=== PATIENT | male | born 1990 | race African-American/Black ===

== ENCOUNTER 2024-06-30 13:30 | Emergency (ER) | payer OTHER, SELFPAY ==
[2024-06-30 13:42] VITALS: BP 102/76; PULSE 81; RESP 14; O2SAT 99; BMI 19.2
--- NOTE | 2024-06-30 13:46 | ED_ITS ---
HPI - General Adult General Chief complaint: Wound/Laceration Stated complaint: laceration l index finger work inj Time Seen by Provider: 06/30/24 13:47 Source: patient Mode of arrival: ambulatory Limitations: no limitations History of Present Illness ED Provider: Kandace Montanez NP HPI narrative: patient is a 34-year-old male who presents to the emergency department for evaluation of an accidental laceration to the distal tip of his left index finger. This occurred just prior to arrival, was accidental while cutting vegetables. Reports date of last tetanus vaccination is unknown. denies use of anticoagulants or known coagulation disorders. Related Data Previous Rx's ?Medication ?Instructions ?Recorded bacitracin 500 unit/gram topical 1 appl topical TID #14.2 grams 06/30/24 ointment Allergies Allergy/AdvReac Type Severity Reaction Status Date / Time No Known Allergies Allergy Verified 06/30/24 13:45 Review of Systems Review of Systems: Yes all other systems are reviewed and are negative PMFSH Past Medical History Attestation statement: The following information was validated with the patient. Source: old records reviewed Social History Social History Advance Directives: No Advance Directives Information Provided: Yes Do you have a plan to hurt others: No Plan Physical Exam ED Vital Signs: Vital Signs - 24 hr 06/30/24 13:42 06/30/24 14:01 06/30/24 14:20 Temperature 97.9 F 97.9 F Pulse Rate 81 81 Respiratory Rate 14 16 Blood Pressure 102/76 102/76 Pulse Oximetry 99 98 Oxygen Delivery Method Room Air Room Air BMI result Body Mass Index 19.2 Appearance: Alert.?Oriented to person, place and time. No acute distress.?Normal affect. CVS: Heart sounds normal. Normal heart rate and rhythm.? Pulses normal.?? Respiratory: No respiratory distress.? Lung sounds clear to auscultation funmi aterally??? Skin: Skin warm and dry.? Normal skin color.? Avulsion to the distal tip of the left 2nd digit ulnar aspect. scant amount of active bleeding.? Extremities: No extremity edema.? Neuro: Moves all extremities spontaneously. Sensation intact bilaterally. No focal neuro deficits. Ambulates with normal steady gait. Course Course Course Narrative: RME, this is a rapid medical exam performed by Valente Barnard please refer to jamil tejada provider for complete H&P- 34-year-old male presents for evaluation of a laceration to his left index finger. He accidentally cut the tip of his finger while cutting vegetables. He has a small avulsion to the tip of the left 2nd finger. Unknown last tetanus. Medications Administered Discontinued Medications Generic Name Dose Route Start Last Admin Trade Name Janis PRN Reason Stop Dose Admin Bacitracin 1 appl 06/30/24 13:59 06/30/24 14:03 Bacitracin Oint 0.9 Gm Packet TOPICAL 06/30/24 14:00 1 appl ONCE ONE Administration Protocol Diphtheria/Tetanus/Acell Pertussis 0.5 ml 06/30/24 13:45 06/30/24 13:53 Diphth,Pertus(Acell),Tet Adult 0.5 Ml Syringe IM 06/30/24 13:46 0.5 ml .ONCE ONE Administration Medical Decision Making Medical Decision Making MDM Narrative: Patient is a 34 old male who presents emergency department for evaluation of an accidental avulsion injury to the distal tip of the left index finger. Pertinent exam findings as for PE portion of this note. Was irrigated extensively with saline and Betadine. Not amenable to repair with sutures. They are scant bleeding at this time, overall acceptable hemostasis. Bacitracin was applied and covered with a clean dressing. Tetanus vaccination was updated today. Discussed reasons to return including fever or chills, erythema, swelling, pain, purulence or odor from the wound. All questions answered. Differential Diagnosis Differential Diagnoses: The differential diagnosis associated with the presentation includes ( laceration, retained foreign body, tendon or ligamentous injury, active bleeding) Prescription Management I considered prescription management with: Pain Medication Discharge Plan Discharge Clinical Impression: Avulsion of skin Patient Disposition: Home, Self-Care Additional Instructions: clean the hand at least twice daily with warm water and mild non scented soap. Apply topical bacitracin ointment. Cover with a dry dressing. Your tetanus vaccine was updated today. If you develop new or worsening symptoms or concerns such as increasing pain, pus-like drainage or foul smell from the wound, fevers, chills, inability to move the finger and this should be re- evaluated, you may follow-up with [facility]. You can take ibuprofen 200 mg, 3 tablets (600mg) every 6-8 hours as needed for pain, in addition to Tylenol 500 mg, 2 tablets (1,000mg) every 4-6 hours as needed for pain, but not to exceed 3 doses daily (3,000mg).? Prescriptions: New bacitracin 500 unit/gram ointment 1 appl topical TID Qty: 14.2 0RF Referrals: [facility] [Provider Group] Physician,None [Primary Care Provider] - Stand Alone Forms: Work/School Release Interventions: ED Discharge Assessment Last Done: 06/30/24 14:20 Discharge Date/Time: 06/30/24 14:22 Print Language: [place] Islander
[2024-06-30] MEDS: Diphth,Pertus(ACell),Tet Adult 0.5 ML SYRINGE IM (13:53)
[2024-06-30 14:01] VITALS: TEMP 36.6
[2024-06-30] MEDS: Bacitracin Oint 0.9 GM PACKET 1 APPL TOPICAL (14:03)
--- NOTE | 2024-06-30 14:13 | PC.NURSE ---
Cut wrapped w/ gauze, abx ointment, and bandage.
[2024-06-30 14:20] VITALS: BP 102/76; PULSE 81; RESP 16; TEMP 36.6; O2SAT 98
== END 2024-06-30 14:22 | disposition home or self-care (01) ==
PROVIDERS: Emergency Provider Emergency Medicine
DX: S61.211A Laceration without foreign body of left index finger without damage to nail, initial encounter (principal); W26.0XXA Contact with knife, initial encounter; Y93.G1 Activity, food preparation and clean up; Y92.000 Kitchen of unspecified non-institutional (private) residence as the place of occurrence of the external cause; Y99.9 Unspecified external cause status; Z23 Encounter for immunization
CPT/HCPCS: 90471; 90715; 99283; 99284